=== PATIENT | male | born 1980 | race African-American/Black ===

== ENCOUNTER 2019-08-04 13:46 | Emergency (ER) | payer OTHER ==
[2019-08-04] MEDS ORDERED: Acetaminophen/HYDROcodone 325-5 MG Tab PO ONE (14:00)
[2019-08-04] MEDS ORDERED: Diphtheria,Pertussis(Acell),Tetanus Vaccine 0.5 ML Syringe IM ONE (14:00)
[2019-08-04] MEDS ORDERED: Bacitracin Oint 1 GM U/D Packet TOP ONE (14:00)
--- NOTE | 2019-08-04 14:10 | EDM.PDOC ---
ED HPI GENERAL MEDICAL PROBLEM - General Chief Complaint: Upper Extremity Injury/Pain Stated Complaint: LACERATION Time Seen by Provider: 08/04/19 13:46 Source of Information: Reports: Patient History Limitations: Reports: No Limitations - History of Present Illness INITIAL COMMENTS - FREE TEXT/NARRATIVE: HISTORY AND PHYSICAL: History of present illness: Patient is a 38-year-old male who presents to the emergency room with complaints of a crush injury to his left index finger. He states that his finger got caught and slammed in a door resulting in pain and a superficial abrasion to his distal finger. He has no other extremity involvement. Offers no systemic complaints. Unsure of his last tetanus update. Review of systems: As per history of present illness and below otherwise all systems reviewed and negative. Past medical history: As per history of present illness and as reviewed below otherwise noncontributory. Surgical history: As per history of present illness and as reviewed below otherwise noncontributory. Social history: See social history for further information Family history: As per history of present illness and as reviewed below otherwise noncontributory. Physical exam: General: Well-developed and well-nourished 38-year-old male. Alert and oriented. Nontoxic appearing and in no acute distress. HEENT: Atraumatic, normocephalic, pupils equal and reactive bilaterally, negative for conjunctival pallor or scleral icterus, mucous membranes moist, TMs normal bilaterally, throat clear, neck supple, nontender, trachea midline. No drooling or trismus noted. No meningeal signs. No hot potato voice noted. Lungs: Clear to auscultation, breath sounds equal bilaterally, chest nontender. Heart: S1S2, regular rate and rhythm without overt murmur Abdomen: Soft, nondistended, nontender. Skin: Superficial abrasion to distal right second digit. Otherwise skin is intact, warm, dry. No lesions or rashes noted. Extremities: Crush injury of the distal left 2nd digit. Cap refill less than 3 seconds. He moves all extremities per self without difficulty or deficits. See SKIN for details. Neurovascular unremarkable. Neuro: Awake, alert, oriented. Cranial nerves II through XII unremarkable. Cerebellum unremarkable. Motor and sensory unremarkable throughout. Exam nonfocal. Notes: X-ray shows no acute findings. Wound care was provided. Patient states he has much improvement in his pain after the by mouth medication. Supportive care measures were reviewed and discussed. Voices understanding and is agreeable to plan of care. Denies any further questions or concerns at this time. Diagnostics: Xray Therapeutics: Wound care, bacitracin, Tdap, Lincoln Prescription: None Impression: Crush injury Plan: 1. Rest, ice, elevate the affected extremity. 2. Tylenol and/or Ibuprofen as needed for pain management. 3. Follow up with the Orthopedic provider as we discussed. Return to the ED as needed and as discussed. Definitive disposition and diagnosis as appropriate pending reevaluation and review of above. Left Finger-Index Pain Score (Numeric/FACES): 10 - Related Data Allergies Allergy/AdvReac Type Severity Reaction Status Date / Time No Known Allergies Allergy Verified 08/04/19 13:56 Home Meds: Home Meds . [No Known Home Meds] 08/04/19 [History] Past Medical History - Past Health History Medical/Surgical History: Denies Medical/Surgical History Social & Family History - Family History Family Medical History: Noncontributory - Tobacco Use Smoking Status *Q: Never Smoker - Recreational Drug Use Recreational Drug Use: No Review of Systems - Review of Systems Review Of Systems: ROS reveals no pertinent complaints other than HPI. ED EXAM, GENERAL - Physical Exam Exam: See Below (See dictation) Course - Vital Signs Last Recorded V/S: Last Vital Signs Temp 97.7 F 08/04/19 13:54 Pulse 70 08/04/19 13:54 Resp 18 08/04/19 13:54 BP 133/77 08/04/19 13:54 Pulse Ox 99 08/04/19 13:54 - Orders/Labs/Meds Orders: Active Orders 24 hr Category Date Time Status Communication Order [RC] STAT Care 08/04/19 14:00 Active Vaccines to be Administered [RC] PER UNIT ROUTINE Care 08/04/19 14:00 Active Meds: Medications Discontinued Medications Generic Name Dose Route Start Last Admin Trade Name Freq PRN Reason Stop Dose Admin Hydrocodone Bitart/Acetaminophen 1 tab 08/04/19 14:00 08/04/19 14:16 Lincoln 325-5 Mg PO 08/04/19 14:01 1 tab ONETIME ONE Administration Bacitracin 1 dose 08/04/19 14:00 08/04/19 14:21 Bacitracin Oint 1 Gm TOP 08/04/19 14:01 1 dose ONETIME ONE Administration Diphtheria/Tetanus/Acell Pertussis 0.5 ml 08/04/19 14:00 08/04/19 14:17 Adacel IM 08/04/19 14:01 0.5 ml .ONCE ONE Administration Lidocaine HCl 2 ml 08/04/19 14:19 Xylocaine-Mpf 1% INJECT 08/04/19 14:20 ONETIME ONE Departure - Departure Time of Disposition: 15:15 Disposition: Home, Self-Care 01 Clinical Impression: Crush injury - Discharge Information Instructions: Crush Injury of the Hand, [id number] Referrals: PCP,None [Primary Care Provider] - Forms: ED Department Discharge Additional Instructions: The following information is given to patients seen in the emergency department who are being discharged to home. This information is to outline your options for follow-up care. We provide all patients seen in our emergency department with a follow-up referral. The need for follow-up, as well as the timing and circumstances, are variable depending upon the specifics of your emergency department visit. If you don't have a primary care physician on staff, we will provide you with a referral. We always advise you to contact your personal physician following an emergency department visit to inform them of the circumstance of the visit and for follow-up with them and/or the need for any referrals to a consulting specialist. The emergency department will also refer you to a specialist when appropriate. This referral assures that you have the opportunity for follow-up care with a specialist. All of these measure are taken in an effort to provide you with optimal care, which includes your follow-up. Under all circumstances we always encourage you to contact your private physician who remains a resource for coordinating your care. When calling for follow-up care, please make the office aware that this follow-up is from your recent emergency room visit. If for any reason you are refused follow-up, please contact the [facility] Emergency Department at and asked to speak to the emergency department charge nurse. [facility] [address] [place] [address] [id number] [address] [place] [address] 1. Rest, ice, elevate the affected extremity. 2. Tylenol and/or Ibuprofen as needed for pain management. 3. Follow up with the Orthopedic provider as we discussed. Return to the ED as needed and as discussed. - My Orders Last 24 Hours: My Active Orders 08/04/19 14:00 Communication Order [RC] STAT Vaccines to be Administered [RC] PER UNIT ROUTINE - Assessment/Plan Last 24 Hours: My Active Orders 08/04/19 14:00 Communication Order [RC] STAT Vaccines to be Administered [RC] PER UNIT ROUTINE
[2019-08-04] MEDS ORDERED: Lidocaine 1% PF 2 ML SDV INJECT ONE (14:19)
--- NOTE | 2019-08-04 15:05 | CR ---
EXAM DATE: 08/04/19 PATIENT'S AGE: 38 Left finger: Three views centered to the left 2nd finger were obtained. Comparison: No previous study. Soft tissue injury is noted distally. No fracture, dislocation or other bony abnormality is seen. Impression: 1. Soft tissue injury. 2. No acute bony abnormality is identified. Diagnostic code #2 Report Signed by Proxy. SHON
== END 2019-08-04 15:25 | disposition home or self-care (01) ==
LOC: MW.ED 13:46
DX: S67.191A Crushing injury of left index finger, initial encounter (principal); S60.411A Abrasion of left index finger, initial encounter; Z23 Encounter for immunization; W23.0XXA Caught, crushed, jammed, or pinched between moving objects, initial encounter
CPT/HCPCS: 73140; 90471; 90715; 99283; A9270